=== PATIENT | female | born 1950 | race Caucasian/White ===

== ENCOUNTER 2018-11-10 14:44 | Outpatient (CLI) | payer MEDICARE | END 2018-11-10 14:45 | disposition home or self-care (01) | LOC: BICMAMMO 14:44 | PROVIDERS: ATTEND Internal Medicine | DX: Z12.31 Encounter for screening mammogram for malignant neoplasm of breast (principal); R92.1 Mammographic calcification found on diagnostic imaging of breast; Z98.82 Breast implant status; Z80.3 Family history of malignant neoplasm of breast | CPT/HCPCS: 77063; 77067 ==

== ENCOUNTER 2019-04-06 11:10 | Outpatient (CLI) | payer MEDICARE ==
--- NOTE | 2019-04-06 11:36 | RAD ---
EXAM: 2 views of the right hip HISTORY: Right hip pain for 2 to 3 years COMPARISON: None FINDINGS: 2 views of the right hip shows no evidence of acute fracture or dislocation. No degenerativ e changes are seen. No soft tissue swelling is present. IMPRESSION: No evidence of acute osseous abnormality.
== END 2019-04-06 11:11 | disposition home or self-care (01) ==
LOC: RAD 11:10
PROVIDERS: ATTEND Nurse Practitioner Family
DX: M25.551 Pain in right hip (principal)

== ENCOUNTER 2020-06-03 09:55 | Outpatient (CLI) | payer MEDICARE ==
--- NOTE | 2020-06-03 10:56 | MMO ---
Bilateral MAMMO Bilat Screen [facility]. CLINICAL HISTORY: Patient is 69 years old and is seen for screening. The patient has the following family history of breast cancer: mother, at age 67. The patient has no personal history of cancer. VIEWS: The views performed were: bilateral craniocaudal with tomosynthesis and bilateral mediolateral oblique with tomosynthesis. FILMS COMPARED: The present examination has been compared to prior imaging studies performed at [facility] on 11/28/2007, 12/10/2008, 06/20/2012 and 11/10/2018. This study has been interpreted with the assistance of computer-aided detection. MAMMOGRAM FINDINGS: The breasts are almost entirely fat. There are no suspicious masses, suspicious calcifications, or new areas of architectural distortion. IMPRESSION: THERE IS NO MAMMOGRAPHIC EVIDENCE OF MALIGNANCY. A ROUTINE FOLLOW-UP MAMMOGRAM IN 1 YEAR IS RECOMMENDED. THE RESULTS OF THIS EXAM WERE SENT TO THE PATIENT. ACR BI-RADS Category 1 - Negative MAMMOGRAPHY NOTE: 1. A negative mammogram report should not delay a biopsy if a dominant of clinically suspicious mass is present. 2. Approximately 10% to 15% of breast cancers are not detected by mammography. 3. Adenosis and dense breasts may obscure an underlying neoplasm. Reported by: MARY YOUNG MD Electonically Signed: [id number]
== END 2020-06-03 09:56 | disposition home or self-care (01) ==
LOC: BICMAMMO 09:55
PROVIDERS: ATTEND Internal Medicine
DX: Z12.31 Encounter for screening mammogram for malignant neoplasm of breast (principal); Z80.3 Family history of malignant neoplasm of breast
CPT/HCPCS: 77063; 77067

== ENCOUNTER 2020-09-01 07:36 | Outpatient (CLI) | payer MEDICARE ==
--- NOTE | 2020-09-01 08:35 | CT ---
CT ABDOMEN AND PELVIS WITH IV CONTRAST: Date: 09/01/2020 PROVIDED CLINICAL HISTORY: History of Crohn's disease, diarrhea and abdominal pain. FINDINGS: Comparison made with the study dated 08/01/2012. The visualized lung bases are free of significant opacity. The liver, spleen, pancreas, kidneys, and adrenal glands demonstrate an unremarkable CT appearance. There is apparent mural thickening involving the proximal sigmoid colon and descending colon. The rem ainder of the colon and small bowel demonstrate an unremarkable CT appearance. Duodenal diverticulum is again seen. The stomach and duodenum appear otherwise unremarkable. There is no bowel dilatation, inflammatory fat stranding, free fluid, or lymph node enlargement appar ent. The osseous structures demonstrate no concerning lytic or blastic lesions. Lumbar spine degenerative changes are seen. Atherosclerotic vascular calcifications are noted. IMPRESSION: Apparent mural thickening involving the descending and sigmoid colon, compatible with the provided cl inical history of Crohn's disease. POS: SHERI
[2020-09-01] MEDS ORDERED: Iopamidol-370 76% 500 ML 1 ML ONE (14:07)
== END 2020-09-01 07:37 | disposition home or self-care (01) ==
LOC: BICCT 07:36
PROVIDERS: ATTEND Internal Medicine Gastroenterology
DX: K50.90 Crohn's disease, unspecified, without complications (principal); R10.9 Unspecified abdominal pain; R19.7 Diarrhea, unspecified; K63.89 Other specified diseases of intestine
CPT/HCPCS: 74177

== ENCOUNTER 2021-08-09 13:15 | Outpatient (CLI) | payer MEDICARE | END 2021-08-09 13:16 | disposition home or self-care (01) | LOC: TBSIIMAG 13:15 | PROVIDERS: ATTEND Anesthesiology Pain Medicine | DX: M47.22 Other spondylosis with radiculopathy, cervical region (principal); M16.11 Unilateral primary osteoarthritis, right hip; M48.02 Spinal stenosis, cervical region; M47.813 Spondylosis without myelopathy or radiculopathy, cervicothoracic region | CPT/HCPCS: 72141 ==

== ENCOUNTER 2021-12-04 09:40 | Outpatient (CLI) | payer MEDICARE | END 2021-12-04 09:41 | disposition home or self-care (01) | LOC: BICMAMMO 09:40 | PROVIDERS: ATTEND Internal Medicine | DX: Z12.31 Encounter for screening mammogram for malignant neoplasm of breast (principal); Z98.82 Breast implant status; Z80.3 Family history of malignant neoplasm of breast | CPT/HCPCS: 77063; 77067 ==

== ENCOUNTER 2022-02-06 09:35 | Outpatient (CLI) | payer MEDICARE, OTHER | END 2022-02-06 09:36 | disposition home or self-care (01) | LOC: BICULT 09:35 | PROVIDERS: ATTEND Anesthesiology Pain Medicine | DX: I82.421 Acute embolism and thrombosis of right iliac vein (principal) | CPT/HCPCS: 93970 ==

== ENCOUNTER 2022-02-22 09:18 | Outpatient (CLI) | payer MEDICARE, OTHER | END 2022-02-22 09:19 | disposition home or self-care (01) | LOC: MRI 09:18 | PROVIDERS: ATTEND Anesthesiology Pain Medicine | DX: M47.24 Other spondylosis with radiculopathy, thoracic region (principal); M47.26 Other spondylosis with radiculopathy, lumbar region; M48.062 Spinal stenosis, lumbar region with neurogenic claudication | CPT/HCPCS: 72146; 72148 ==

== ENCOUNTER 2022-06-27 19:30 | Outpatient (CLI) | payer MEDICARE, OTHER | END 2022-06-27 19:31 | disposition home or self-care (01) | LOC: SLEEPLAB 19:30 | PROVIDERS: ATTEND Internal Medicine Critical Care Medicine | DX: G47.33 Obstructive sleep apnea (adult) (pediatric) (principal); K21.9 Gastro-esophageal reflux disease without esophagitis; R09.89 Other specified symptoms and signs involving the circulatory and respiratory systems; G47.10 Hypersomnia, unspecified; M54.9 Dorsalgia, unspecified; G89.29 Other chronic pain; R06.83 Snoring; F41.9 Anxiety disorder, unspecified; G47.00 Insomnia, unspecified; I10 Essential (primary) hypertension; G47.31 Primary central sleep apnea; E66.9 Obesity, unspecified; Z68.35 Body mass index [BMI] 35.0-35.9, adult | CPT/HCPCS: 95811 ==

== ENCOUNTER 2023-09-30 10:27 | Outpatient (CLI) | payer MEDICARE, OTHER | END 2023-09-30 10:28 | disposition home or self-care (01) | LOC: MRI 10:27 | PROVIDERS: ATTEND Anesthesiology Pain Medicine | DX: M54.12 Radiculopathy, cervical region (principal); M48.02 Spinal stenosis, cervical region | CPT/HCPCS: 72141 ==

== ENCOUNTER 2023-10-02 11:58 | Outpatient (CLI) | payer MEDICARE, OTHER | END 2023-10-02 11:59 | disposition home or self-care (01) | LOC: MRI 11:58 | PROVIDERS: ATTEND Anesthesiology Pain Medicine | DX: C90.00 Multiple myeloma not having achieved remission (principal); M47.26 Other spondylosis with radiculopathy, lumbar region; M47.817 Spondylosis without myelopathy or radiculopathy, lumbosacral region | CPT/HCPCS: 72146; 72148 ==

== ENCOUNTER 2024-07-29 13:31 | Outpatient (CLI) | payer MEDICARE, OTHER | END 2024-07-29 13:32 | disposition home or self-care (01) | LOC: SCSMRI 13:31 | PROVIDERS: ATTEND Nurse Practitioner Family | DX: S32.000A Wedge compression fracture of unspecified lumbar vertebra, initial encounter for closed fracture (principal); S22.000A Wedge compression fracture of unspecified thoracic vertebra, initial encounter for closed fracture; M48.061 Spinal stenosis, lumbar region without neurogenic claudication; M47.816 Spondylosis without myelopathy or radiculopathy, lumbar region; M43.8X4 Other specified deforming dorsopathies, thoracic region | CPT/HCPCS: 72146; 72148 ==